=== PATIENT | male | born 1995 | race Caucasian/White ===

== ENCOUNTER 2022-09-26 00:13 | Emergency (ER) | payer SELFPAY ==
[2022-09-26 00:48] LABS: Hematocrit 41.3 % (39.6-49.0); Lymphocytes % 35.4 % (15.3-44.8); MCV 85.7 fL (80-100); MPV 8.3 fL (7.6-11.3); RBC Red Blood Cell Count 4.82 M/uL (4.33-5.43)
[2022-09-26 01:09] LABS: Albumin 3.6 g/dL (3.4-5.0); Bilirubin Total 0.4 mg/dL (0.2-1.0); Protein, Total 7.9 g/dL (6.4-8.2)
[2022-09-26] MEDS ORDERED: NA CHLORIDE 0.9% 0 ML ONE (01:56)
[2022-09-26 02:31] LABS: Urine Blood Trace-intact (Negative); Urine Glucose Negative (Negative); Urine Protein Negative (Negative); Urine Specific Gravity 1.025 (1.005-1.030); Urine pH 6.5 (5.0-7.0)
[2022-09-26 02:57] LABS: Urine Mucus Slight /HPF (None Seen); Urine RBC <5 /HPF (None Seen)
--- NOTE | 2022-09-26 03:32 | EDPHYS ---
Physician Documentation [facility] Name: Lucas Rios Age: 27 yrs Sex: Male : 1995 Arrival Date: 09/26/2022 Time: 00:16 Bed 18 Private MD: ANNIE Physician Sam Cintron HPI: 09/26 02:18 This 27 yrs old Male presents to ER via Wheelchair with complaints of tobias Abdominal Pain. 02:18 The patient presents with abdominal pain in the right upper quadrant, right lower tobias quadrant. Onset: The symptoms/episode began/occurred just prior to arrival. The patient complains of pain in the right mid back and right low back. The pain radiates to the right mid back and right low back. Onset: The symptoms/episode began/occurred just prior to arrival. Modifying factors: The symptoms are alleviated by nothing. the symptoms are aggravated by nothing. The symptoms radiate to the right flank. Associated signs and symptoms: Pertinent positives: nausea. Modifying factors: The symptoms are alleviated by nothing, the symptoms are aggravated by nothing. Historical: - Allergies: 00:29 No Known Allergies; hb - Home Meds: 00:29 None [Active]; hb - PMHx: 00:29 None; hb - PSHx: 00:29 None; hb - Immunization history:: Adult Immunizations up to date. - Social history:: Smoking status: Patient/guardian denies using tobacco. - Family history:: not pertinent. ROS: 02:21 Constitutional: Negative for fever, chills, and weight loss, Eyes: Negative for injury, tobias pain, redness, and discharge, ENT: Negative for injury, pain, and discharge, Neck: Negative for injury, pain, and swelling, Cardiovascular: Negative for chest pain, palpitations, and edema, Respiratory: Negative for shortness of breath, cough, wheezing, and pleuritic chest pain, : Negative for injury, bleeding, discharge, and swelling, MS/Extremity: Negative for injury and deformity, Skin: Negative for injury, rash, and discoloration, Neuro: Negative for headache, weakness, numbness, tingling, and seizure, Psych: Negative for depression, anxiety, suicide ideation, homicidal ideation, and hallucinations, Allergy/Immunology: Negative for hives, rash, and allergies, Endocrine: Negative for neck swelling, polydipsia, polyuria, polyphagia, and marked weight changes, Hematologic/Lymphatic: Negative for swollen nodes, abnormal bleeding, and unusual bruising. 02:21 Abdomen/GI: Positive for abdominal pain, of the anterior aspect of right lateral abdomen, posterior aspect of right lateral abdomen, right upper quadrant and right lower quadrant. Exam: 02:21 Constitutional: This is a well developed, well nourished patient who is awake, alert, tobias and in no acute distress. Head/Face: Normocephalic, atraumatic. Eyes: Pupils equal round and reactive to light, extra-ocular motions intact. Lids and lashes normal. Conjunctiva and sclera are non-icteric and not injected. Cornea within normal limits. Periorbital areas with no swelling, redness, or edema. ENT: Nares patent. No nasal discharge, no septal abnormalities noted. Tympanic membranes are normal and external auditory canals are clear. Oropharynx with no redness, swelling, or masses, exudates, or evidence of obstruction, uvula midline. Mucous membranes moist. Neck: Trachea midline, no thyromegaly or masses palpated, and no cervical lymphadenopathy. Supple, full range of motion without nuchal rigidity, or vertebral point tenderness. No Meningismus. Chest/axilla: Normal chest wall appearance and motion. Nontender with no deformity. No lesions are appreciated. Cardiovascular: Regular rate and rhythm with a normal S1 and S2. No gallops, murmurs, or rubs. Normal PMI, no JVD. No pulse deficits. Respiratory: Lungs have equal breath sounds bilaterally, clear to auscultation and percussion. No rales, rhonchi or wheezes noted. No increased work of breathing, no retractions or nasal flaring. Back: No spinal tenderness. No costovertebral tenderness. Full range of motion. Male : Normal genitalia with no discharge or lesions. Skin: Warm, dry with normal turgor. Normal color with no rashes, no lesions, and no evidence of cellulitis. MS/ Extremity: Pulses equal, no cyanosis. Neurovascular intact. Full, normal range of motion. Neuro: Awake and alert, GCS 15, oriented to person, place, time, and situation. Cranial nerves II-XII grossly intact. Motor strength 5/5 in all extremities. Sensory grossly intact. Cerebellar exam normal. Normal gait. Psych: Awake, alert, with orientation to person, place and time. Behavior, mood, and affect are within normal limits. 02:21 Abdomen/GI: Inspection: abdomen appears normal, Bowel sounds: normal, Palpation: mild abdominal tenderness, in the right upper quadrant and right lower quadrant, Liver: no appreciated palpable abnormalities, Hernia: not appreciated. Vital Signs: 00:28 BP 168 / 98; Pulse 69; Resp 16; Temp 98.7; Pulse Ox 100% on R/A; Weight 149.69 kg; hb Height 5 ft. 9 in. (175.26 cm); Pain 1010; 02:15 BP 144 / 97; Pulse 76; Resp 16; Pulse Ox 95% on R/A; jb4 03:15 BP 127 / 81; Pulse 62; Resp 16; Pulse Ox 95% on R/A; jb4 00:28 Body Mass Index 48.73 (149.69 kg, 175.26 cm) hb MDM: 01:32 Patient medically screened. tobias 02:23 Differential diagnosis: UTI, pancreatitis, appendicitis, bowel obstruction, tobias Cholelithiasis, diverticulitis, non-specific abd pain, pancreatitis, Ureterolithiasis, urinary tract infection. Data reviewed: vital signs, nurses notes, lab test result(s), radiologic studies, CT scan. 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 Test interpretation: by ED physician or midlevel provider:. Counseling: I had a detailed discussion with the patient and/or guardian regarding: the historical points, exam findings, and any diagnostic results supporting the discharge/admit diagnosis, lab results, radiology results, the need for outpatient follow up, for definitive care, a family practitioner, a urologist. 09/26 00:30 Order name: CBC with Diff hb 09/26 00:30 Order name: CMP hb 09/26 00:56 Order name: CBC with Automated Diff EDMS 09/26 01:13 Order name: Comprehensive Metabolic Panel EDNC 09/26 01:13 Order name: Lipase EDNC 09/26 00:30 Order name: IV Saline Lock; Complete Time: 00:35 hb 09/26 00:30 Order name: Labs collected and sent; Complete Time: 00:35 hb 09/26 01:33 Order name: CT Abd/Pelvis - IV Contrast Only tobias 09/26 02:17 Order name: Urine Microscopic Only; Complete Time: 03:18 tobias 09/26 02:31 Order name: Urine Dipstick-Ancillary; Complete Time: 03:18 EDMS 09/26 00:30 Order name: Urine Dipstick-Ancillary (obtain specimen); Complete Time: 03:10 hb Administered Medications: 01:52 Not Given (Patient Refused): Ketorolac 30 mg IVP once jb4 01:52 Not Given (Patient Refused): Zofran (Ondansetron) 4 mg IVP once; over 2 minutes jb4 02:37 Not Given (Patient Refused): NS 0.9% 1000 ml IV at 1 bolus Per protocol; 1000 mL bolus jb4 Disposition Summary: 09/26/22 03:30 Discharge Ordered Location: Home [facility] Problem: new tobias Symptoms: have improved tobias Condition: Stable tobias Diagnosis - Abnormal findings on diagnostic imaging of other specified body structures - tobias multiple pulmonary nodules - Abdominal pain, unspecified tobias Followup: tobias - With: Private Physician - When: 2 - 3 days - Reason: Recheck today's complaints, Continuance of care, Re-evaluation by your physician Followup: tobias - With: Sam Paez MD - When: 2 - 3 days - Reason: Recheck today's complaints, Re-evaluation by your physician Discharge Instructions: - Discharge Summary Sheet tobias - Abdominal Pain, Adult tobias - Flank Pain, Adult tobias - Abdominal Pain, Adult, [id number] tobias - Pulmonary Nodule tobias - Pulmonary Nodule, [id number] tobias Forms: - Medication Reconciliation Form tobias - Thank You Letter tobias - Antibiotic Education tobias - Prescription Opioid Use [facility] Prescriptions: - Zofran 4 mg Oral Tablet - take 1 tablet by ORAL route every 12 hours As needed; 20 tablet; Refills: 0, [facility] Product Selection Permitted - dicyclomine 20 mg Oral Tablet - take 1 tablet by ORAL route 4 times per day; 28 tablet; Refills: 0, Product [facility] Selection Permitted Signatures: Dispatcher [employer] EDSam Clark MD MD cha Baxter, Heather, RN RN Dashawn Mcgrath RN jb4 Corrections: (The following items were deleted from the chart) 00:35 00:31 LIPASE+C.LAB.BRZ ordered. EDNC EDMS
--- NOTE | 2022-09-26 03:32 | ER ---
Nurse's Notes [facility] Name: Lucas Rios Age: 27 yrs Sex: Male : 1995 Arrival Date: 09/26/2022 Time: 00:16 Bed 18 Private MD: Diagnosis: Abnormal findings on diagnostic imaging of other specified body structures-multiple pulmonary nodules;Abdominal pain, unspecified Presentation: 09/26 00:28 Chief complaint: Severe right sided abdominal pain and nausea x 1 hour. Coronavirus hb screen: At this time, the client does not indicate any symptoms associated with coronavirus-19. Ebola Screen: No symptoms or risks identified at this time. Risk Assessment: Do you want to hurt yourself or someone else? Patient reports no desire to harm self or others. Onset of symptoms was September 26, 2022. 00:28 Method Of Arrival: Wheelchair hb 00:28 Acuity: TRISTA 3 hb Historical: - Allergies: 00:29 No Known Allergies; hb - Home Meds: 00:29 None [Active]; hb - PMHx: 00:29 None; hb - PSHx: 00:29 None; hb - Immunization history:: Adult Immunizations up to date. - Social history:: Smoking status: Patient/guardian denies using tobacco. - Family history:: not pertinent. Screenin:45 Abuse screen: Denies threats or abuse. Nutritional screening: No deficits noted. jb4 Tuberculosis screening: No symptoms or risk factors identified. Fall Risk None identified. Assessment: 00:45 General: Appears in no apparent distress. comfortable, Behavior is calm, cooperative, jb4 appropriate for age. Pain: Complains of pain in right upper quadrant Pain does not radiate. Pain currently is 2 out of 10 on a pain scale. Neuro: Level of Consciousness is awake, alert, obeys commands, confused, Oriented to person, place, time, situation. Cardiovascular: Patient's skin is warm and dry. Respiratory: Airway is patent Respiratory effort is even, unlabored, Respiratory pattern is regular, symmetrical. GI: Abdomen is round non-distended, obese. : Reports pain in right in lower back. EENT: No signs and/or symptoms were reported regarding the EENT system. Derm: Skin is intact, Skin is pink, warm \T\ dry. Musculoskeletal: Circulation, motion, and sensation intact. Range of motion: intact in all extremities. 02:00 Reassessment: Patient appears in no apparent distress at this time. Patient and/or jb4 family updated on plan of care and expected duration. Pain level reassessed. Patient is alert, oriented x 3, equal unlabored respirations, skin warm/dry/pink. 03:00 Reassessment: Patient appears in no apparent distress at this time. Patient and/or jb4 family updated on plan of care and expected duration. Pain level reassessed. Patient is alert, oriented x 3, equal unlabored respirations, skin warm/dry/pink. Vital Signs: 00:28 BP 168 / 98; Pulse 69; Resp 16; Temp 98.7; Pulse Ox 100% on R/A; Weight 149.69 kg; hb Height 5 ft. 9 in. (175.26 cm); Pain 10/10; 02:15 BP 144 / 97; Pulse 76; Resp 16; Pulse Ox 95% on R/A; jb4 03:15 BP 127 / 81; Pulse 62; Resp 16; Pulse Ox 95% on R/A; jb4 00:28 Body Mass Index 48.73 (149.69 kg, 175.26 cm) hb ED Course: 00:16 Patient arrived in ED. bp1 00:29 Triage completed. hb 00:29 Arm band placed on. hb 00:34 Inserted saline lock: 20 gauge in left antecubital area, using aseptic technique. Blood hb collected. 00:35 CBC with Diff Sent. tw5 00:35 CMP Sent. tw5 01:32 Sam Cintron MD is Attending Physician. tobias 02:19 CT Abd/Pelvis - IV Contrast Only In Process Unspecified. EDMS 03:19 Sam Paez MD is Referral Physician. tobias 03:24 Dashawn Saha, DIMITRY is Primary Nurse. jb4 03:44 No provider procedures requiring assistance completed. IV discontinued, intact, jb4 bleeding controlled, No redness/swelling at site. Pressure dressing applied. Administered Medications: 01:52 Not Given (Patient Refused): Ketorolac 30 mg IVP once jb4 01:52 Not Given (Patient Refused): Zofran (Ondansetron) 4 mg IVP once; over 2 minutes jb4 02:37 Not Given (Patient Refused): NS 0.9% 1000 ml IV at 1 bolus Per protocol; 1000 mL bolus jb4 Medication: 03:44 VIS not applicable for this client. jb4 Outcome: 03:30 Discharge ordered by MD. collado 03:44 Discharged to home ambulatory, with family. jb4 03:44 Condition: stable 03:44 Discharge instructions given to patient, Instructed on discharge instructions, follow up and referral plans. medication usage, benefits of quitting smoking, Demonstrated understanding of instructions, follow-up care, medications, Prescriptions given X 2. 03:44 Patient left the ED. jb4 Signatures: Dispatcher [employer] EDMS Sam Cintron MD MD cha Baxter, Heather, RN RN Dashawn Mcgrath, DIMITRY RN jb4 Marlys Cruz Tiffany tw5 Corrections: (The following items were deleted from the chart) 00:35 00:35 LIPASE+C.LAB.BRZ drawn and sent. tw5 [facility]
[2022-09-26 04:21] VITALS: TEMP 98.7
[2022-09-26 04:22] VITALS: O2SAT 95
[2022-09-26 04:23] VITALS: BP 127/81
--- NOTE | 2022-09-27 20:31 | RAD REPORT ---
EXAM DESCRIPTION: CT - Abdomen Pelvis W Contrast - 09/26/2022 2:17 am CLINICAL HISTORY: 27 years, Male, RLQ abdominal pain COMPARISON: None TECHNIQUE: Contrast-enhanced images of the abdomen and pelvis were performed utilizing 5 mm slice th ickness at 5 mm interval reconstruction from the lung bases to the ischial tuberosities after the adm inistration of IV contrast. In addition multiplanar reformats in the coronal and sagittal plane were obtained and reviewed. This exam was performed according to our departmental dose-optimization protocol, which includes auto mated exposure control, adjustment of the mA and/or kV according to patient size and/or use of iterat federica reconstruction technique. FINDINGS: The lung bases demonstrated presence of a pulmonary nodule lateral segment right middle lo be measuring 5 mm on image 6 and 5 mm on image 7, left lower lobe measuring 5 mm on image 12 and 4 mm on image 12 there are questionable early calcifications. The liver, gallbladder, pancreas, spleen and adrenal glands demonstrate to be unremarkable, no focal lesions are noted. The kidneys demonstrate normal uptake of contrast media. No evidence for nephrolithiasis and/or hydro nephrosis. Grossly the unopacified stomach, small bowel and large bowel demonstrate to be within normal limits. There is no evidence for bowel dilatation/or free air. The appendix is normal on axial image 60/1 20-66/120. The urinary bladder demonstrate to be unremarkable. The prostate gland is normal. The aorta demon strate to be normal. There is no retroperitoneal lymphadenopathy. There is no evidence for ascites/ or significant abnormal fluid collections. The rest of the soft tissue and bony structures are within normal limits. IMPRESSION: No acute intra-abdominal or pelvic process. Multiple pulmonary nodules. Most severe: 5 mm right solid pulmonary nodule. If patient is low risk fo r malignancy, no routine follow-up imaging is recommended; if patient is high risk for malignancy, a non-contrast Chest CT at 12 months is optional. If performed and the nodule is stable at 12 months, n o further follow-up is recommended. Note: This recommendation does not apply to patients younger than 35 years, immunocompromised patients, and patients with cancer. F/u in patients with significant com orbidities as clinically warranted. For lung cancer screening, adhere to Lung-RADS guidelines. Refere nce: Radiology. 2017 Miguel; 284(1):228-243 Electronically signed by: Chavo Canales MD 09/26/2022 2:51 AM CDT Due to temporary technical issues with the PACS/Fluency reporting system, reports are being signed by the in house radiologists without review as a courtesy to insure prompt reporting. The interpreting radiologist is fully responsible for the content of the report.
== END 2022-09-26 03:44 | disposition home or self-care (01) ==
LOC: ER 00:13
DX: R10.9 Unspecified abdominal pain (principal); R91.8 Other nonspecific abnormal finding of lung field
CPT/HCPCS: 36415; 74177; 80053; 81003; 81015; 83690; 85025; 99284; J7030; Q9967

== ENCOUNTER 2023-10-19 21:59 | Emergency (ER) | payer SELFPAY ==
[2023-10-19 22:26] LABS: Absolute Lymphocytes (CBC) 2.7 K/uL (0.7-4.9); Hematocrit 42.6 % (39.6-49.0); Lymphocytes % 22.6 % (15.3-44.8); MCV 86.2 fL (80-100); MPV 8.3 fL (7.6-11.3); Platelets 338 thou/uL (152-406); RBC Red Blood Cell Count 4.94 M/uL (4.33-5.43)
[2023-10-19] MEDS ORDERED: ONDANSETRON 4 MG/2 ML VIAL ONE (22:36)
[2023-10-19] MEDS ORDERED: MORPHINE 4 MG/ML SYR ONE (22:36)
[2023-10-19] MEDS ORDERED: FAMOTIDINE 20 MG/2 ML VIAL IV ONE (22:36)
[2023-10-19 22:42] LABS: Albumin 3.7 g/dL (3.4-5.0); Bilirubin Total 0.3 mg/dL (0.2-1.0); Potassium 3.9 mEq/L (3.5-5.1); Protein, Total 8.2 g/dL (6.4-8.2)
[2023-10-19] MEDS ORDERED: HYDROMORPHONE HCL 1 MG/ML INJ ONE (23:29)
--- NOTE | 2023-10-20 01:04 | ER ---
Nurse's Notes [facility] Name: Lucas Rios Age: 28 yrs Sex: Male : 1995 Arrival Date: 10/19/2023 Time: 21:59 Bed 7 Private MD: Diagnosis: Other cholelithiasis without obstruction Presentation: 10/19 22:23 Chief complaint: Spouse and/or significant other states: He started having mild vc1 abdominal pain after drinking [employer] then all of a sudden he started having severe abdominal pain and vomiting. Coronavirus screen: Vaccine status: Patient reports being unvaccinated. Client denies travel out of the [place] in the last 14 days. vomiting. Ebola Screen: Patient negative for fever greater than or equal to 101.5 degrees Fahrenheit, and additional compatible Ebola Virus Disease symptoms Patient denies exposure to infectious person. Patient denies travel to an Ebola-affected area in the 21 days before illness onset. No symptoms or risks identified at this time. Initial Sepsis Screen: Does the patient meet any 2 criteria? RR > 20 per min. No. Patient's initial sepsis screen is negative. Does the patient have a suspected source of infection? Yes: Acute abdominal pain. Risk Assessment: Do you want to hurt yourself or someone else? Patient reports no desire to harm self or others. Onset of symptoms was October 19, 2023 at 19:30. Care prior to arrival: None. Activity prior to arrival: None. Mechanism of Injury: No Mechanism of Injury. Transition of care: patient was not received from another setting of care. 22:23 Method Of Arrival: Ambulatory vc1 22:23 Acuity: TRISTA 3 vc1 Triage Assessment: 22:34 General: Appears uncomfortable, obese, Behavior is cooperative, restless. Pain: vc1 Complains of pain in right upper quadrant and left upper quadrant Pain does not radiate. Pain currently is 10 out of 10 on a pain scale. Quality of pain is described as sharp, Pain began suddenly, 3 hours ago. Noted to be grimacing, resistant to movement. EENT: No deficits noted. No signs and/or symptoms were reported regarding the EENT system. Neuro: Level of Consciousness is awake, alert, obeys commands, Oriented to person, place, time, situation, Appropriate for age. Cardiovascular: No deficits noted. Respiratory: Airway is patent Respiratory effort is even, unlabored, shallow, Respiratory pattern is symmetrical, hyperventilation. GI: Abdomen is round obese, Bowel sounds present X 4 quads. Reports upper abdominal pain, vomiting, Patient currently denies diarrhea. : No deficits noted. No signs and/or symptoms were reported regarding the genitourinary system. Derm: No deficits noted. No signs and/or symptoms reported regarding the dermatologic system. Musculoskeletal: No deficits noted. No signs and/or symptoms reported regarding the musculoskeletal system. Historical: - Allergies: 22:26 No Known Allergies; vc1 - Home Meds: 22:26 None [Active]; vc1 - PMHx: 22:26 None; vc1 - PSHx: 22:26 None; vc1 - Immunization history:: Client reports having NOT received the Covid vaccine. Flu vaccine is not up to date. - Social history:: Smoking status: Reported history of juuling and/or vaping. Patient/guardian denies using tobacco, Stopped _ months ago .25. - Family history:: not pertinent. - Hospitalizations: : No recent hospitalization is reported. Screenin:27 [facility] ED Fall Risk Assessment (Adult) History of falling in the last 3 months, vc1 including since admission No falls in past 3 months (0 pts) Confusion or Disorientation No (0 pts) Intoxicated or Sedated No (0 pts) Impaired Gait No (0 pts) Mobility Assist Device Used Yes (1 pt) Altered Elimination No (0 pt) Score/Fall Risk Level 0 - 2 = Low Risk Oriented to surroundings, Maintained a safe environment, Educated pt \T\ family on fall prevention, incl call for assistance when getting out of bed. Abuse screen: Denies threats or abuse. Nutritional screening: No deficits noted. Tuberculosis screening: No symptoms or risk factors identified. Assessment: 22:37 General: See triage assessment. GI: Abdomen is round non-distended, obese, Bowel sounds vc1 present X 4 quads. Abd is soft Abdomen is tender to palpation in right upper quadrant and left upper quadrant Reports upper abdominal pain, vomiting, Patient currently denies diarrhea. 23:30 Reassessment: Patient appears in no apparent distress at this time. Patient and/or jb4 family updated on plan of care and expected duration. Pain level reassessed. Patient is alert, oriented x 3, equal unlabored respirations, skin warm/dry/pink. 10/20 00:30 Reassessment: Patient appears in no apparent distress at this time. Patient and/or jb4 family updated on plan of care and expected duration. Pain level reassessed. Patient is alert, oriented x 3, equal unlabored respirations, skin warm/dry/pink. 01:21 Reassessment: Patient and/or family updated on plan of care and expected duration. Pain vc1 level reassessed. Patient is alert, oriented x 3, equal unlabored respirations, skin warm/dry/pink. Patient denies pain at this time. Patient states symptoms have improved. Vital Signs: 10/19 22: BP 144 / 116; Pulse 61; Resp 42; Temp 98.2; Pulse Ox 100% ; Weight 149.69 kg; Height 5 vc1 ft. 9 in. ; Pain 10; 23:18 BP 145 / 103; Pulse 62; Resp 20; Pulse Ox 95% ; vc1 10/20 00:00 BP 132 / 85; Pulse 70; Resp 16; Pulse Ox 99% on R/A; jb4 01:00 BP 119 / 75; Pulse 59; Resp 20; Pulse Ox 96% on R/A; vc1 10/19 22:23 Body Mass Index 48.73 (149.69 kg, 175.26 cm) vc1 10/19 22:23 Pain Scale: Adult vc1 ED Course: 10/19 22:00 Patient arrived in ED. jj6 22:01 Oracio Liao MD is Attending Physician. rn 22:19 Maritza Napoles, DIMITRY is Primary Nurse. vc1 22:26 Triage completed. vc1 22:27 Arm band placed on right wrist. vc1 22:32 Patient has correct armband on for positive identification. Bed in low position. Pulse vc1 ox on. NIBP on. 22:53 US Abdomen Limited In Process Unspecified. EDMS 23:43 CT Abd/Pelvis - IV Contrast Only In Process Unspecified. EDMS 10/20 00:00 No provider procedures requiring assistance completed. jb4 01:03 John Chavarria MD is Referral Physician. rn 01:27 IV discontinued, intact, bleeding controlled, No redness/swelling at site. Pressure jb4 dressing applied. 01:30 Provided Education on: taking antacids. vc1 Administered Medications: 10/19 22:35 Drug: Ondansetron IVP 4 mg IVP once; over 2 minutes Route: IVP; Site: right antecubital;jb4 22:35 Drug: morphine IVP or IV 4 mg IVP once over 4 mins Route: IVP; Infused Over: 4 mins; jb4 Site: right antecubital; 22:36 Drug: Famotidine IVP 20 mg IVP once; dilute with 10 mL 0.9% NaCl; give over 2 minutes jb4 Route: IVP; Site: right antecubital; 23:18 Drug: HYDROmorphone IVP 1 mg IVP once Route: IVP; Site: right antecubital; vc1 Medication: 22:33 VIS not applicable for this client. vc1 Outcome: 10/20 01:03 Discharge ordered by . rn 01:27 Discharged to home ambulatory, with family, jb4 01:27 Condition: stable 01:27 Discharge instructions given to patient, Instructed on discharge instructions, follow up and referral plans. medication usage, Demonstrated understanding of instructions, follow-up care, medications, Prescriptions given X 2, 01:28 Patient left the ED. jb4 Signatures: Dispatcher [employer] EDMS Oracio Liao MD MD rn Bryson, James, RN RN jb4 Lianet Johnson jj6 Maritza Napoles RN RN vc1
--- NOTE | 2023-10-20 01:04 | EDPHYS ---
Physician Documentation [facility] Name: Lucas Rios Age: 28 yrs Sex: Male : 1995 Arrival Date: 10/19/2023 Time: 21:59 Bed 7 Private MD: ED Physician Oracio Liao HPI: 10/20 00:37 This 28 yrs old Male presents to ER via Ambulatory with complaints of Abdominal Pain, rn Nausea/Vomiting. 00:37 The patient presents to the emergency department with nausea, vomiting, abdominal pain. rn Onset: The symptoms/episode began/occurred just prior to arrival. Possible causes: unknown. The symptoms are aggravated by nothing. The symptoms are alleviated by nothing. Severity of symptoms: At their worst the symptoms were moderate in the emergency department the symptoms are unchanged. The patient has not experienced similar symptoms in the past. Earlier todaySudden onset of upper abdominal pain and vomiting. Tried antacids and did not help. No known gallbladder problems. No fever. No diarrhea. No blood in stool.. Historical: - Allergies: 10/19 22:26 No Known Allergies; vc1 - Home Meds: 22:26 None [Active]; vc1 - PMHx: 22:26 None; vc1 - PSHx: 22:26 None; vc1 - Immunization history:: Client reports having NOT received the Covid vaccine. Flu vaccine is not up to date. - Social history:: Smoking status: Reported history of juuling and/or vaping. Patient/guardian denies using tobacco, Stopped _ months ago .25. - Family history:: not pertinent. - Hospitalizations: : No recent hospitalization is reported. ROS: 10/20 00:37 Constitutional: Negative for fever, chills, and weight loss, Cardiovascular: Negative rn for chest pain, palpitations, and edema, Respiratory: Negative for shortness of breath, cough, wheezing, and pleuritic chest pain, Abdomen/GI: Positive for abdominal pain/nausea/vomiting Back: Negative for injury and pain, : Negative for injury, bleeding, discharge, and swelling, MS/Extremity: Negative for injury and deformity, Skin: Negative for injury, rash, and discoloration, Neuro: Negative for headache, weakness, numbness, tingling, and seizure, Exam: 00:37 Constitutional: This is a well developed, well nourished patient who is awake, alert, rn appears uncomfortable, hunched over bed when gets in room Head/Face: Normocephalic, atraumatic. Cardiovascular: Regular rate and rhythm. No pulse deficits. Respiratory: No increased work of breathing, no retractions or nasal flaring. Abdomen/GI: Soft, mild epigastric/right upper quadrant/left upper quadrant tenderness, negative Shields, no peritoneal signs Skin: Warm, dry MS/ Extremity: Pulses equal, no cyanosis. Neuro: Awake and alert, GCS 15 Vital Signs: 10/19 22: BP 144 / 116; Pulse 61; Resp 42; Temp 98.2; Pulse Ox 100% ; Weight 149.69 kg; Height 5 vc1 ft. 9 in. ; Pain 09/05; 23:18 BP 145 / 103; Pulse 62; Resp 20; Pulse Ox 95% ; vc1 10/20 00:00 BP 132 / 85; Pulse 70; Resp 16; Pulse Ox 99% on R/A; jb4 01:00 BP 119 / 75; Pulse 59; Resp 20; Pulse Ox 96% on R/A; vc1 10/19 22:23 Body Mass Index 48.73 (149.69 kg, 175.26 cm) vc1 10/19 22:23 Pain Scale: Adult vc1 MDM: 10/19 22:01 Patient medically screened. rn 10/20 00:08 ED course: Patient feeling much better, ambulatory to room, no longer pacing or hunched rn over bed. Pain well-controlled. Ultrasound shows cholelithiasis but no signs of cholecystitis. LFTs and lipase normal. Awaiting CT results. 00:37 ED course: Improved, ambulatory and pain seems well-controlled now. Still just waiting rn on CT results. 01:02 Differential diagnosis: Nonspecific abd pain, gastritis, cholecystitis, pancreatitis, rn diverticulitis, viral gastroenteritis, gastroenteritis. Data reviewed: vital signs, nurses notes, lab test result(s), radiologic studies, CT scan, ultrasound, and as a result, I will discharge patient. Counseling: I had a detailed discussion with the patient and/or guardian regarding the historical points, exam findings, and any diagnostic results supporting the discharge/admit diagnosis, lab results, radiology results, the need for outpatient follow up, to return to the emergency department if symptoms worsen or persist or if there are any questions or concerns that arise at home. ED course: CT abdomen and pelvis negative for acute process. Most likely cholelithiasis but no cholecystitis or evidence of obstruction. I have personally reviewed all of the results, including but not limited to blood tests and imaging deemed necessary to safely discharge this patient at this time. All results given to and printed out for patient. I personally went over all the results with the patient and answered all questions. Patient will follow-up with PCP and or specialist as discussed. Return precautions given and understood.. 10/19 22:12 Order name: CBC with Diff; Complete Time: 23:11 rn 10/19 22:12 Order name: CMP; Complete Time: 23:11 rn 10/19 22:12 Order name: Lipase; Complete Time: 23:11 rn 10/19 22:12 Order name: CT Abd/Pelvis - IV Contrast Only rn 10/19 22:12 Order name: US Abdomen Limited rn 10/19 22:12 Order name: IV Saline Lock; Complete Time: 22:34 rn 10/19 22:12 Order name: Labs collected and sent; Complete Time: 22:34 rn Administered Medications: 10/19 22:35 Drug: Ondansetron IVP 4 mg IVP once; over 2 minutes Route: IVP; Site: right antecubital;jb4 22:35 Drug: morphine IVP or IV 4 mg IVP once over 4 mins Route: IVP; Infused Over: 4 mins; jb4 Site: right antecubital; 22:36 Drug: Famotidine IVP 20 mg IVP once; dilute with 10 mL 0.9% NaCl; give over 2 minutes jb4 Route: IVP; Site: right antecubital; 23:18 Drug: HYDROmorphone IVP 1 mg IVP once Route: IVP; Site: right antecubital; vc1 Disposition Summary: 10/20/23 01:03 Discharge Ordered Notes: Location: Home rn Problem: new rn Symptoms: have improved rn Condition: Stable rn Diagnosis - Other cholelithiasis without obstruction rn Followup: rn - With: John Chavarria MD - When: As needed - Reason: Recheck today's complaints, Re-evaluation by your physician Discharge Instructions: - Discharge Summary Sheet rn - Cholelithiasis rn Forms: - Medication Reconciliation Form rn - Thank You Letter rn - Antibiotic learning and development manager - Prescription Opioid Use rn - Patient Portal Instructions rn - Leadership Thank You Letter rn Prescriptions: - ondansetron 4 mg Oral Tablet,disintegrating - take 1 tablet ORAL route every 8 hours As needed; 10 tablet; Refills: 0, rn Product Selection Permitted - Tramadol 50 mg Oral Tablet - take 1 tablet ORAL route every 8 hours as needed; 12 tablet; Refills: 0, rn Product Selection Permitted Signatures: Dispatcher [employer] EDOracio Reveles MD MD rn Bryson, James RN RN jb4 Martiza Napoles RN RN vc1
[2023-10-20 01:33] VITALS: TEMP 98.2
[2023-10-20 01:36] VITALS: BP 119/75; O2SAT 96
--- NOTE | 2023-10-20 19:28 | RAD REPORT ---
EXAM DESCRIPTION: CT - Abdomen Pelvis W Contrast - 10/20/2023 6:50 am CLINICAL HISTORY: 28 years, Male, ABD PAIN, VOMITING COMPARISON: 09/27/2022 TECHNIQUE: Contrast-enhanced images of the abdomen and pelvis were performed utilizing 5 mm slice th ickness at 5 mm interval reconstruction from the lung bases to the ischial tuberosities after the adm inistration of IV contrast. In addition multiplanar reformats in the coronal and sagittal plane were obtained and reviewed. An individualized dose optimization technique, Automated Exposure Control, was utilized for the perfo rmed procedure. FINDINGS: Lung bases: The lung bases again demonstrate the presence of several bilateral pulmonary n odules similar to prior study, largest one measuring 5 mm on axial image 11, unchanged. Liver: The liver demonstrates to be normal, no focal lesions identified. Gallbladder: The gallbladder demonstrate to be normal. Adrenal glands: The adrenal glands demonstrate to be normal. Pancreas: The pancreas demonstrate to be normal. Spleen: The spleen demonstrate to be within normal limits. Kidneys: The kidneys demonstrate normal uptake of contrast media. There is no evidence for nephroli thiasis and/or hydronephrosis. There are no significant cystic lesions. GI: Grossly the unopacified stomach, small bowel and large bowel demonstrate to be within normal limi ts. No evidence for bowel dilatation and/or free air. The appendix was difficult to visualize althoug h no significant lumbar changes are seen in the right lower quadrant. The left-sided colon demonstrat e to be decompressed with no gross abnormalities. : The urinary bladder demonstrate to be unremarkable. Genitalia: The prostate gland is normal. Abdominal aorta: The aorta demonstrate demonstrate to be within normal limits. Retroperitoneum: There is no retroperitoneal lymphadenopathy. There is no evidence for ascites and/or abnormal fluid collections. Bones: The bony structures demonstrate to be within normal limits. Soft tissues: The rest of the soft tissue and bony structures are within normal limits. IMPRESSION: No acute intra-abdominal or pelvic process identified. Stable bilateral lung bases pulmonary nodules. No significant interval change in comparison with prio r study. Electronically signed by: Chavo Canales MD 10/20/2023 12:00 AM TICKETER Due to temporary technical issues with the PACS/Fluency reporting system, reports are being signed by the in house radiologists without review as a courtesy to insure prompt reporting. The interpreting radiologist is fully responsible for the content of the report.
--- NOTE | 2023-10-20 19:41 | RAD REPORT ---
EXAM DESCRIPTION: US - Abdomen Exam Limited - 10/19/2023 10:51 pm CLINICAL HISTORY: ABD PAIN TECHNIQUE: Real-time and davis scale sonographic imaging of the gallbladder and common bile duct. COMPARISON: None available for comparison FINDINGS: Gallbladder: Moderately distended gallbladder with small gallstones. No gallbladder wall thickening or pericholecystic fluid. Common bile duct: 3.9 mm in diameter. There is no intrahepatic biliary ductal dilatation. IMPRESSION: Cholelithiasis with no ultrasound signs of acute cholecystitis or biliary ductal dilatat ion. 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 The interpreting radiologist is fully responsible for the content of the report.
== END 2023-10-20 01:28 | disposition home or self-care (01) ==
LOC: ER 21:59
DX: K80.80 Other cholelithiasis without obstruction (principal)
CPT/HCPCS: 36415; 74177; 76705; 80053; 83690; 85025; 96374; 96375; 99284; J1170; J2405; Q9967